=== PATIENT | female | born 1950 | race Caucasian/White ===

== ENCOUNTER 2016-11-02 10:45 | Outpatient (CLI) | payer MEDICARE ==
--- NOTE | 2016-11-02 12:01 | DEXA Report ---
DEXA SCAN: 11/02/2016 CLINICAL INDICATION: Postmenopausal. TECHNIQUE: Dual energy x-ray absorptiometry (DXA) was performed on a [employer] system. Regions measured are the AP spine, femoral neck, and, if needed, forearm. COMPARISON: None. In accordance with the International Society for Clinical Densitometry (ISCD) guidelines, data from previous exams may be reanalyzed using current recommendations and techniques. This is done to allow a more accurate basis for comparison with the current study. FINDINGS: The data for the lumbar spine is as follows: REGION BMD (g/cm/cm) T-SCORE Z-SCORE L1 0.881 -2.1 -0.3 L2 0.983 -1.8 0.0 L3 1.037 -1.4 0.4 L4 1.005 -1.6 0.2 TOTAL 0.983 -1.6 0.1 NOTE: All evaluable vertebrae are used for classification. The data for the hip is as follows: REGION BMD (g/cm/cm) T-SCORE Z-SCORE Neck 0.718 -2.3 -0.7 TOTAL 0.752 -2.0 -0.7 NOTE: The femoral neck or total proximal femur, whichever is lowest, is used for classification. IMPRESSION: THE WHO CLASSIFICATION BASED ON THE INTERNATIONAL REFERENCE STANDARD IS OSTEOPENIA. THE FRACTURE RISK IS INCREASED. RECOMMENDATION: Patients with diagnosis of osteoporosis or osteopenia should have regular bone mineral density assessment. For those eligible for Medicare, routine testing is allowed once every 2 years. Testing frequency can be increased for patients who have rapidly progressing disease or for those who are receiving medical therapy to restore bone mass. COMMENT: World Health Organization (WHO) definitions for osteoporosis and osteopenia: NORMAL BMD: T-score at -1.0 or higher, fracture risk is low. OSTEOPENIA BMD: T-score between -1.0 and -2.5, fracture risk is increased. OSTEOPOROSIS BMD: T-score at -2.5 or lower, fracture risk high. National Osteoporosis Foundation recommends: 1. Obtain adequate dietary calcium (at least 1200 mg per day) and vitamin D (400 -800 international units per day). 2. Participate, as appropriate, in regular weightbearing and muscle- strengthening exercise. 3. Avoid tobacco use and reduce alcohol and caffeine intake. 4. For more detailed information see the website at www.NOF.org. MTDD
== END 2016-11-02 10:46 | disposition home or self-care (01) ==
LOC: DI 10:45
PROVIDERS: ATTEND Family Medicine
DX: M85.89 Other specified disorders of bone density and structure, multiple sites (principal)
CPT/HCPCS: 77080

== ENCOUNTER 2016-12-08 12:42 | Outpatient (CLI) | payer MEDICARE ==
--- NOTE | 2016-12-09 13:43 | Mammography Report ---
DIGITAL SCREENING MAMMOGRAM: 12/08/2016 CLINICAL INDICATION: A 66-year-old, for screening. COMPARISON: 11/2015, 11/2014, 10/2013, 05/2011, 09/2007, 12/2006. TECHNIQUE: Routine CC and MLO projections were obtained of the breasts. FINDINGS: Scattered fibroglandular tissue is present within the breasts. There are no dominant emily s, suspicious microcalcifications, or secondary signs of malignancy. In comparison to the previous st udies, there are no significant changes. ASSESSMENT: NO MAMMOGRAPHIC EVIDENCE OF MALIGNANCY. NO SIGNIFICANT INTERVAL CHANGES. RECOMMENDATION: Screening mammography is recommended annually. BIRADS category 1 - negative. STANDARD QUALIFYING STATEMENTS 1. This examination was reviewed with the aid of Computed-Aided Detection (CAD). 2. A negative or benign imaging report should not delay biopsy if clinically suspicious findings are present. Consider surgical consultation if warranted. More than 5% of cancers are not identified by i maging. 3. Dense breasts may obscure an underlying neoplasm. JOB #: [id number] EXT JOB #:[id number]
== END 2016-12-08 12:43 | disposition home or self-care (01) ==
LOC: DI 12:42
PROVIDERS: ATTEND Family Medicine
DX: Z12.31 Encounter for screening mammogram for malignant neoplasm of breast (principal)
CPT/HCPCS: 77067

== ENCOUNTER 2017-12-20 09:11 | Outpatient (CLI) | payer MEDICARE ==
--- NOTE | 2017-12-22 10:44 | Mammography Report ---
Reason: SCREENING MAMMO Procedure Date: 12/20/2017 Accession Number: [id number] / [id number] Procedure: [facility] - Screening Mammo Dig Bilat CPT Code: FULL RESULT: EXAM: Screening Mammo Dig Bilat DATE: 12/20/2017 9:37 AM CLINICAL HISTORY: 67-year-old female with family history of breast cancer in an aunt at age 30 and a cousin at age 30. TECHNIQUE: Bilateral CC and MLO views were obtained. A cleavage view was also obtained. COMPARISON: 12/08/2016, 11/23/2015, 11/05/2014, 10/27/2013. FINDINGS: The breasts demonstrate scattered fibroglandular densities bilaterally. A coarse typically benign calcifications are seen in the right breast. No suspicious masses, clustered microcalcifications, or regions of architectural distortion are identified. IMPRESSION: Benign findings RECOMMENDATION: Routine annual screening unless otherwise clinically indicated. BIRADS CATEGORY 2: Benign findings STANDARD QUALIFYING STATEMENTS: 1. This examination was reviewed without the aid of Computer-Aided Detection (CAD). 2. A negative or benign imaging report should not delay biopsy if clinically suspicious findings are present. Consider surgical consultation if warrented. More than 5% of cancers are not identified by imaging. 3. Dense breasts may obscure an underlying neoplasm.
== END 2017-12-20 09:12 | disposition home or self-care (01) ==
LOC: DI 09:11
DX: Z12.31 Encounter for screening mammogram for malignant neoplasm of breast (principal); Z80.3 Family history of malignant neoplasm of breast
CPT/HCPCS: 77067

== ENCOUNTER 2018-12-07 08:33 | Outpatient (CLI) | payer MEDICARE, OTHER ==
--- NOTE | 2018-12-07 14:51 | XRAY Report ---
Reason: CHRONIC COUGH Procedure Date: 12/07/2018 Accession Number: [id number] / [id number] Procedure: [facility] - Chest 2 View X-Ray CPT Code: 08544 FULL RESULT: EXAM: CHEST RADIOGRAPHY EXAM DATE: 12/07/2018 08:33 AM. CLINICAL HISTORY: CHRONIC COUGH. COMPARISON: None. TECHNIQUE: 2 views. FINDINGS: Lungs/Pleura: No focal opacities evident. No pleural effusion. No pneumothorax. Normal volumes. Mediastinum: Heart and mediastinal contours are unremarkable. Other: Slight superior endplate deformity vertebral body at the thoracolumbar junction. Mild lower thoracic dextroscoliosis. Mildly elevated left diaphragm. IMPRESSION: Clear lungs. No acute findings. RADIA
== END 2018-12-07 23:59 | disposition home or self-care (01) ==
LOC: DI.WCP 08:33 → EDSTATUS 13:27 → DI.WCP 23:59
PROVIDERS: ATTEND Family Medicine
DX: R05 Cough (principal)
CPT/HCPCS: 71046

== ENCOUNTER 2021-12-15 11:14 | Outpatient (CLI) | payer MEDICARE, OTHER ==
--- NOTE | 2021-12-16 10:20 | Mammography Report ---
BILATERAL DIGITAL SCREENING MAMMOGRAM 3D/2D: 12/15/2021 CLINICAL: Routine screening. Comparison is made to exams dated: 12/20/2017 mammogram, 12/08/2016 mammogram, 11/25/2015 mammogram, 10/04 mammogram, and 11/05/2014 mammogram - [facility]. Both breasts are almost entirely fatty (category a/<25% glandular tissue). There are benign calcifications in the right breast. No significant masses, calcifications, or other findings are seen in either breast. There has been no significant interval change. IMPRESSION: BENIGN There is no mammographic evidence of malignancy. A 1 year screening mammogram is recommended. Based on the Tyrer Cuzick model (a risk assessment model) the patients lifetime risk is 1.9% and her 10 year risk is 1.3%. According to the ACR, ACS, and NCCN guidelines, an annual breast MRI exam elidia g with mammogram is recommended if the patients lifetime risk is 20% or greater. This exam was interpreted at Station ID: [id number]. NOTE: For mammograms, a report in lay terms will be sent to the patient. Approximately 15% of breast malignancies will not be visualized mammographically. In the management of a palpable breast mass, a negative mammogram must not discourage biopsy of a clinically suspicious lesion. Electronically Signed By: Alfonso Spangler acr/serafinrad:12/15/2021 16:21:15 ACR BI-RADS Category 2: Benign Finding(s) 3342F PARENCHYMAL PATTERN: (F) - The breast(s) demonstrate(s) diffuse fatty replacement. BI-RADS CATEGORY: (2) - 2 RECOMMENDATION: (ANNUAL) - Recommend routine annual screening mammography. [id number] 1 year screening LATERALITY: (B)
== END 2021-12-15 11:15 | disposition home or self-care (01) ==
LOC: DI 11:14
DX: Z12.31 Encounter for screening mammogram for malignant neoplasm of breast (principal)